=== PATIENT | male | born 1950 | race Caucasian/White ===

== ENCOUNTER 2016-11-29 07:29 | Emergency (ER) | payer OTHER ==
[~2016-11-29] VITALS: Ht 188 cm; Wt 99.1 kg
[~2016-11-29 07:29] MED LIST: ARMOUR THYROID PO; BUSPAR30 MG PO; COUMADIN,JANTO7.5 MG PO; COUMADIN,JANTOVE5 MG PO; Klonopin PO; LITHIUM CARBON300 MG PO; WARFARIN SODIU7.5 MG PO; ZYPREXA2.5 MG PO
[2016-11-29 08:18] LABS: INTER. NORMALIZED RATIO 2.1; PROTHROMBIN TIME 21.5 (9.2-11.2)
[2016-11-29 09:11] VITALS: BP 117/67
== END 2016-11-29 09:24 | disposition home or self-care (01) ==
LOC: EME 07:29
PROVIDERS: Physician Assistant
DX: M79.661 Pain in right lower leg (principal); R06.02 Shortness of breath; Z86.711 Personal history of pulmonary embolism; Z79.01 Long term (current) use of anticoagulants; Z87.891 Personal history of nicotine dependence
CPT/HCPCS: 85610; 93971; 99281; 99284